=== PATIENT | male | born 1995 | race Caucasian/White ===

== ENCOUNTER 2017-08-03 11:06 | Emergency (ER) | payer MEDICAID ==
[~2017-08-03] VITALS: Ht 182.9 cm; Wt 65.8 kg
[2017-08-03 11:11] VITALS: BP_SYST 114
--- NOTE | 2017-08-03 11:11 | NUR ---
PATIENT PLACED IN BED 7 ENDORSED CARE TO SON[facility] MAHARAJ.
--- NOTE | 2017-08-03 11:15 | NUR ---
Pt complains of pain to right forearm. Pt states he "might have been bitten by spider two days ago. Pt states he didn't notice it until yesterday, and today swelling has increased. Pt denies N/V, fever, or diarrhea. Noted raised bump to forearm, erythema to site, edema around bump. Pt states pain radiates to right underarm. No other injuries/complaints per patient or noted.
--- NOTE | 2017-08-03 11:20 | NUR ---
ER Dr. Bonilla at bedside examining patient.
[2017-08-03] MEDS ORDERED: ceFAZolin SODIUM 1 GM VIAL IM ONE (11:30)
[2017-08-03 11:46] VITALS: BP_SYST 114
--- NOTE | 2017-08-03 11:46 | NUR ---
Patient given written and verbal discharge instructions and verbalizes understanding. ER MD discussed with patient the results and treatment provided. Patient in stable condition. ID arm band removed. Rx of Keflex and Bactrim given. Patient educated on pain management and to follow up with PMD. Pain Scale 0. Opportunity for questions provided and answered. Medication side effect fact sheet provided.
== END 2017-08-03 11:46 | disposition home or self-care (01) ==
LOC: SED 11:06
DX: S50.861A Insect bite (nonvenomous) of right forearm, initial encounter (principal); L03.113 Cellulitis of right upper limb; W57.XXXA Bitten or stung by nonvenomous insect and other nonvenomous arthropods, initial encounter; Y93.89 Activity, other specified; Y92.89 Other specified places as the place of occurrence of the external cause; Y99.8 Other external cause status
CPT/HCPCS: 96372; 99283; J0690

== ENCOUNTER 2017-08-06 12:35 | Emergency (ER) | payer MEDICAID ==
[~2017-08-06] VITALS: Ht 182.9 cm; Wt 65.8 kg
[2017-08-06 12:35] VITALS: BP_SYST 104
== END 2017-08-06 15:10 | disposition left against medical advice (07) ==
LOC: SED 12:35
DX: M79.89 Other specified soft tissue disorders (principal); Z53.21 Procedure and treatment not carried out due to patient leaving prior to being seen by health care provider

== ENCOUNTER 2017-09-12 10:02 | Emergency (ER) | payer MEDICAID ==
[~2017-09-12] VITALS: Ht 182.9 cm; Wt 65.8 kg
[2017-09-12 10:06] VITALS: BP_SYST 115
[2017-09-12 10:27] VITALS: BP_SYST 110
== END 2017-09-12 10:25 | disposition home or self-care (01) ==
LOC: SED 10:02
DX: L02.416 Cutaneous abscess of left lower limb (principal); B95.8 Unspecified staphylococcus as the cause of diseases classified elsewhere
CPT/HCPCS: 99283

== ENCOUNTER 2018-01-12 10:18 | Emergency (ER) | payer MEDICAID ==
[~2018-01-12] VITALS: Ht 182.9 cm; Wt 68.0 kg
[2018-01-12 10:21] VITALS: BP_SYST 142
[2018-01-12 11:16] VITALS: BP_SYST 142
== END 2018-01-12 11:16 | disposition home or self-care (01) ==
LOC: SED 10:18
DX: S30.861A Insect bite (nonvenomous) of abdominal wall, initial encounter (principal); R03.0 Elevated blood-pressure reading, without diagnosis of hypertension; W57.XXXA Bitten or stung by nonvenomous insect and other nonvenomous arthropods, initial encounter; Y93.89 Activity, other specified; Y92.69 Other specified industrial and construction area as the place of occurrence of the external cause; Y99.8 Other external cause status
CPT/HCPCS: 99282; 99283

== ENCOUNTER → 2018-02-05 | Emergency (ER) | payer MEDICAID ==
[~2018-02-05] VITALS: Ht 182.9 cm; Wt 61.2 kg
[2018-02-05 16:15] VITALS: BP_SYST 150
[2018-02-05 17:02] VITALS: BP_SYST 150
== END | disposition still patient (30) ==
LOC: SED 16:09
DX: L02.415 Cutaneous abscess of right lower limb (principal); R03.0 Elevated blood-pressure reading, without diagnosis of hypertension
CPT/HCPCS: 99283

== ENCOUNTER 2019-03-19 14:50 | Emergency (ER) | payer MEDICAID ==
[~2019-03-19] VITALS: Ht 180.3 cm; Wt 63.5 kg
[2019-03-19 14:50] VITALS: BP_SYST 146
--- NOTE | 2019-03-19 14:50 | NUR ---
BROUGHT BACK TO BED #4 AND TRIAGED. REPORT GIVEN TO THOMPSON
--- NOTE | 2019-03-19 15:00 | NUR ---
Pt c/o chest pain since last night and states chest hurts when coughing. Pt also states he is congested. No other complaints or injuries per pt or noted.
--- NOTE | 2019-03-19 15:02 | NUR ---
ER Dr. Cuadra at bedside examining patient.
--- NOTE | 2019-03-19 16:00 | NUR ---
Pt states no pain or distress at this time.
[2019-03-19 16:48] LABS: STREPTOCOCCUS A SCREEN (RAPID) NEGATIVE (NEGATIVE)
[2019-03-19 16:55] LABS: MONOTEST NEGATIVE (NEGATIVE)
--- NOTE | 2019-03-19 17:35 | NUR ---
Patient given written and verbal discharge instructions and verbalizes understanding. ER MD discussed with patient the results and treatment provided. Patient in stable condition. ID arm band removed. IV catheter removed intact and dressing applied, no active bleeding. Rx of Motrin, promethazine and Lidocaine solution given. Patient educated on pain management and to follow up with PMD. Pain Scale 2/10 tolerable for pt . Opportunity for questions provided and answered. Medication side effect fact sheet provided.
[2019-03-19 17:36] VITALS: BP_SYST 138
== END 2019-03-19 17:35 | disposition home or self-care (01) ==
LOC: SED 14:50
DX: J06.9 Acute upper respiratory infection, unspecified (principal)
CPT/HCPCS: 36415; 71045; 86308-TC; 86403; 87081; 93005; 99284